=== PATIENT | female | born 1960 | race Caucasian/White ===

== ENCOUNTER → 2019-03-03 | Outpatient (CLI) | payer BC ==
[~2019-03-03] MED LIST: ALEVE 220MG220 MG PO; AMOXICILLIN 8751 TAB PO; CALCIUM 500 W/V1 TAB PO; CLINDAMYCIN150 MG PO; FELDENE20 MG PO; FERROUS SU325 MG/TAB PO; FLONASE NASAL S16 GM NS; FOLIC ACID 40400 MCG PO; HCTZ 25MG25 MG PO; LISINOPRIL40 MG PO; TYLENOL 650MG650 M2 PO; VITAMIN C500 MG PO; ZESTRIL 10MG10 MG PO; ZITHROMAX Z PA250 MG PO
== END ==
LOC: MC.RAD 13:03
DX: Z12.31 Encounter for screening mammogram for malignant neoplasm of breast (principal)

== ENCOUNTER → 2019-06-06 | Outpatient (CLI) | payer BC | LOC: COL.VAS 08:30 | DX: I34.0 Nonrheumatic mitral (valve) insufficiency (principal) ==

== ENCOUNTER 2019-07-04 19:07 | Emergency (ER) | payer BC ==
[~2019-07-04] VITALS: Ht 152.4 cm; Wt 68.6 kg
[2019-07-04 20:08] LABS: BASO # 0.1 (0.0-0.2); BASO % 0.5 % (0.0-2.0); EOS # 0.1 (0.0-0.7); EOS % 1.1 % (0-4.0); GRAN # 7.8 (1.4-6.5); HEMATOCRIT 38.8 % (37.0-47.0); LYMPH # 1.8 (1.2-3.4); LYMPH % 16.9 % (20.0-51.0); MEAN CELL VOLUME 94 fl (80.0-100.0); MEAN CORPUSCULAR HEMOGLOBIN 32 pg (27.0-31.0); MEAN CORPUSCULAR HGB CONC 34 g/dl (33.0-37.0); MEAN PLATELET VOLUME 10.5 fl (7.4-10.4); MONO # 0.7 (0.1-0.6); MONO % 6.2 % (1.7-9.3); PLATELET COUNT 215 K/mm3 (130-400); RED BLOOD COUNT 4.11 M/mm3 (4.10-5.30); REDCELL DISTRIBUTION WIDTH-CV 13.7 % (11.5-14.5)
[2019-07-04 20:19] LABS: ALBUMIN 4.8 gm/dL (3.5-5.0); BILIRUBIN,TOTAL 0.6 mg/dL (0.0-1.0); C-REACTIVE PROTEIN 1.2 mg/dL (0.0-0.9); CREATININE, serum 0.6 (0.52-1.25); POTASSIUM 3.5 mmol/L (3.4-5.0); TOTAL PROTEIN 8.3 gm/dL (6.4-8.2)
[2019-07-04 20:52] LABS: COLLECTION METHOD CLEAN CATCH
[2019-07-04 21:03] LABS: PH 6 (5-8); SQUAMOUS EPITHELIAL 0-2 /hpf; URINE APPEARANCE Clear; URINE BACTERIA None Seen /hpf; URINE BILIRUBIN Negative (NEGATIVE); URINE BLOOD 2+ (NEGATIVE); URINE COLOR Straw; URINE GLUCOSE Negative (NEGATIVE); URINE KETONE Negative (NEGATIVE); URINE LEUKOCYTE ESTERASE 2+ (NEGATIVE); URINE NITRATE Negative (NEGATIVE); URINE PROTEIN(semi-quant) Negative (NEGATIVE); URINE UROBILINOGEN Negative (NEGATIVE)
[2019-07-04] MEDS ORDERED: OMNICEF 300MG300 MG PO (21:18)
[2019-07-04 21:30] VITALS: BP 127/81; PULSE 90; TEMP 98.4
== END 2019-07-04 21:50 | disposition home or self-care (01) ==
LOC: COL.ER 19:07
PROVIDERS: Emergency Medicine
DX: N12 Tubulo-interstitial nephritis, not specified as acute or chronic (principal); N39.0 Urinary tract infection, site not specified; I10 Essential (primary) hypertension; Z79.51 Long term (current) use of inhaled steroids
CPT/HCPCS: J0696; J7030

== ENCOUNTER → 2021-07-04 | Outpatient (CLI) | payer BC ==
[~2021-07-04] MED LIST changes: +OMNICEF 300MG300 MG PO
== END ==
LOC: ZCOL.LAB 13:03
DX: U07.1 COVID-19 (principal)